=== PATIENT | female | born 1955 | race Caucasian/White ===

== ENCOUNTER 2018-03-23 12:51 | Emergency (ER) | payer MEDICARE, OTHER ==
[~2018-03-23] VITALS: Ht 177.8 cm; Wt 72.0 kg
[2018-03-23 13:13] VITALS: BP 157/68; PULSE 70; RESP 17; TEMP 98.2; O2SAT 100
--- NOTE | 2018-03-23 13:31 | PD ---
HPI Chief Complaint: Fall Time Seen by Provider: 13:31 Travel History International Travel<30 days: Yes Contact w/Intl Traveler<30days: [place] Country Traveled to: [place] Traveled to known affect area: No History of Present Illness HPI 62-year-old female came to the emergency room brought by EMS boarded and collared after she sustained a fall at a store. She was at a drugstore trying address when she lost her balance and fell backwards. She thinks her back of the head hit the wall and she went down. She tried not to get up because of the way she hit her head and was concerned. Patient is not on any blood thinners. She did not lose consciousness. Currently complaining of the back of her head and left side of the head hurting. Vital signs otherwise stable. She is awake and answering questions appropriately. FORMERLY [facility] Past Medical History Narrative Medical List of her allergies reviewed from the nursing note Diabetes: Yes Patient Takes Glucophage: No Hypertension: Yes Tetanus Vaccination: < 5 Years ?: Not Past Surgical History Cholecystectomy: Yes Hysterectomy: Yes Social History Alcohol Use: Yes (OCCASSIONALLY) Tobacco Use: No Substance Use: No Allergies-Medications (Allergen,Severity, Reaction): Coded Allergies: No Known Allergies (Verified Allergy, Unknown, 07/16/03) Uncoded Allergies: NKA (Allergy, Unknown, 07/17/03) Comments No known drug allergies. Narrative Medication Awaiting for the nurse to do the med reconciliation Review of Systems Except as stated in HPI: all other systems reviewed are Neg Neurologic: Positive: Headache Physical Exam Narrative GENERAL: Awake, alert, mild distress, boarded and collared SKIN: Focused skin assessment warm/dry. Psych contusion of the left earlobe HEAD: Atraumatic. Normocephalic. EYES: Pupils equal and round. No scleral icterus. No injection or drainage. ENT: No nasal bleeding or discharge. Mucous membranes pink and moist. NECK: Trachea midline. No JVD. CARDIOVASCULAR: Regular rate and rhythm. No murmur appreciated. RESPIRATORY: No accessory muscle use. Clear to auscultation. Breath sounds equal bilaterally. GASTROINTESTINAL: Abdomen soft, non-tender, nondistended. Hepatic and splenic margins not palpable. MUSCULOSKELETAL: No obvious deformities. No clubbing. No cyanosis. No edema. Patient was rolled off the backboard and spine palpated. No step-offs or point tenderness. NEUROLOGICAL: Awake and alert. No obvious cranial nerve deficits. Motor grossly within normal limits. Normal speech. PSYCHIATRIC: Appropriate mood and affect; insight and judgment normal. Data Data Last Documented VS Vital Signs Date Time Temp Pulse Resp B/P (MAP) Pulse Ox O2 Delivery O2 Flow Rate FiO2 03/23/18 13:13 98.2 70 17 157/68 (97) [address] Cerv Spine W/O Contrast (03/23/18 ) Ct Brain W/O Iv Contrast(Rout) (03/23/18 ) Ibuprofen (Motrin) (03/23/18 13:45) MDM Medical Decision Making Medical Screen Exam Complete: Yes Emergency Medical Condition: Yes Medical Record Reviewed: Yes Differential Diagnosis Intracranial bleed, cervical fracture Narrative Course 2:[address] scan of her head and C-spine. If they are negative patient will be discharged home. She was given medication for pain. 3:[address] scans are negative from trauma standpoint. Patient will be discharged home. Procedures EKG Prior to Arrival: No Diagnosis Primary Impression: Head contusion Qualified Codes: S00.03XA - Contusion of scalp, initial encounter Additional Impression: Thyroid nodule Additional Instructions: Apply ice pack to the area of tenderness. Take Tylenol/Motrin/Advil/ibuprofen for any pain if needed and these medications are available [id number]. There was an incidental finding of a thyroid nodule 1 cm in diameter on the CAT scan of the neck. Please follow-up with your primary care regarding this for further outpatient workup. Med/Other Pt SpecificInfo: No Change to Meds Disposition: 01 DISCHARGE HOME Condition: Stable Regino Martin MD March 23, 2018 13:31
[2018-03-23] MEDS ORDERED: IBUPROFEN 600 MG TAB PO ONE (13:45)
--- NOTE | 2018-03-23 14:38 | RADRPT ---
EXAM DATE/TIME: 03/23/2018 14:23 [facility] COMPARISON: No previous studies available for comparison. INDICATIONS : Fall, hit left side of head on wall. RADIATION DOSE: 39.82 CTDIvol (mGy) MEDICAL HISTORY : Hypertension. Diabetes mellitus type 2. SURGICAL HISTORY : None. ENCOUNTER: Initial ACUITY: 1 day PAIN SCALE: 4/10 LOCATION: Left cranial TECHNIQUE: Multiple contiguous axial images were obtained of the head. Using automated exposure control and adj ustment of the mA and/or kV according to patient size, radiation dose was kept as low as reasonably a chievable to obtain optimal diagnostic quality images. DICOM format image data is available electro nically for review and comparison. FINDINGS: CEREBRUM: The ventricles are normal for age. No evidence of midline shift, mass lesion, hemorrhage or acute in farction. No extra-axial fluid collections are seen. POSTERIOR FOSSA: The cerebellum and brainstem are intact. The 4th ventricle is midline. The cerebellopontine angle i s unremarkable. EXTRACRANIAL: The visualized portion of the orbits is intact. SKULL: The calvaria is intact. No evidence of skull fracture. CONCLUSION: 1. No acute intracranial abnormality identified. Amarjit Rodriguez MD on March 23, 2018 at 14:34 Board Certified Radiologist. This report was verified electronically.
--- NOTE | 2018-03-23 15:00 | RADRPT ---
EXAM DATE/TIME: 03/23/2018 14:29 [facility] COMPARISON: No previous studies available for comparison. INDICATIONS : Fall, neck pain. RADIATION DOSE: 20.74 CTDIvol (mGy) MEDICAL HISTORY : Hypertension. Diabetes mellitus type 2. SURGICAL HISTORY : None. ENCOUNTER: Initial ACUITY: 1 day PAIN SCALE: 5/10 LOCATION: Bilateral neck TECHNIQUE: Volumetric scanning of the cervical spine was performed. Multiplanar reconstructions in the sagittal, coronal and oblique axial planes were performed. Using automated exposure control and adjustment o f the mA and/or kV according to patient size, radiation dose was kept as low as reasonably achievable to obtain optimal diagnostic quality images. DICOM format image data is available electronically f or review and comparison. FINDINGS: VERTEBRAE: Normal vertebral body height. ALIGNMENT: No evidence of subluxation. C2-C3: Mild uncinate ridging without central spinal stenosis or neural foramina encroachment. C3-C4: Mild uncinate ridging ridging with minimal left-sided neural foramina encroachment. No significant s clari stenosis C4-C5: Moderately uncinate ridging and minimal bilateral neural foramina encroachment. Mild stenosis. C5-C6: Mild uncinate ridging without significant stenosis. Neural foramina are adequate. C6-C7: The bony spinal canal is normal in size. No evidence of disc bulge or herniation. The neural forami na are bilaterally patent. C7-T1: The bony spinal canal is normal in size. No evidence of disc bulge or herniation. The neural forami na are bilaterally patent. 1 cm thyroid nodule CONCLUSION: Mild degenerative changes. Fracture is not appreciated. Moderate carotid body calcification is particularly on the right. 1 cm thyroid nodule Pilo Rodriguez MD FACR on March 23, 2018 at 14:52 Board Certified Radiologist. This report was verified electronically.
[2018-03-23 15:29] VITALS: BP 135/72
== END 2018-03-23 15:31 | disposition home or self-care (01) ==
LOC: NEPD 12:51
DX: S00.03XA Contusion of scalp, initial encounter (principal); E04.1 Nontoxic single thyroid nodule; W18.30XA Fall on same level, unspecified, initial encounter; Y92.512 Supermarket, store or market as the place of occurrence of the external cause; I10 Essential (primary) hypertension; E11.9 Type 2 diabetes mellitus without complications
CPT/HCPCS: 70450; 72125